=== PATIENT | female | born 1945 | race Caucasian/White ===

== ENCOUNTER → 2017-04-21 | Outpatient (CLI) | payer MEDICARE, BC, OTHER ==
--- NOTE | 2017-04-21 11:48 | REPMRS ---
Patient History The patient states she had a clinical breast exam in March 2017. Patient is postmenopausal. Digital Mammo Screening Bilat: April 21, 2017 - Exam #: [id number] Bilateral CC and MLO view(s) were taken. Technologist: Marguerite Barahona, Technologist Prior study comparison: April 21, 2016, bilateral digital mammo screening bilat performed at [facility]. April 16, 2015, bilateral digital mammo screening bilat performed at [facility]. FINDINGS: There are scattered fibroglandular densities. There has been no change in the appearance of the mammogram from the prior studies. There is a mild amount of residual fibroglandular tissue which is fairly symmetric. There is no interval development of dominant mass, architectural distortion, or clustered microcalcification suggestive of malignancy. ASSESSMENT: BI-RADS/ACR category 1 mammogram. Negative. Recommendation Routine screening mammogram in 1 year (for women over age 40). This mammogram was interpreted with the aid of an FDA-approved computer-aided dectection system. Electronically Signed By: Rob Peoples MD 04/21/17 [id number]
== END ==
LOC: M RAD 11:13
PROVIDERS: ATTEND Nurse Practitioner Women's Health
DX: Z12.31 Encounter for screening mammogram for malignant neoplasm of breast (principal)

== ENCOUNTER → 2017-04-29 | Outpatient (CLI) | payer MEDICARE, BC ==
--- NOTE | 2017-04-30 09:51 | DEXA ---
AP SPINE L1 - L4 1.280 0.7 2.4 LT FEMUR TOTAL 1.064 0.4 2.0 RT FEMUR TOTAL 1.099 0.7 2.2 TOTAL BODY TOTAL OTHER % COMMENTS: Normal bone densitometry of the spine and hips. Lumbar scoliosis, mild. The density of the spine has increased 6.2% since the initial exam on 2004. The spine density has increased 6.7% since the most recent exam on 04/30/2010. The density of the left hip has decreased 1.8% since the initial exam on 2004. The density of the left hip has decreased 6.9% since the most recent exam on 11/2009. The density of the right hip has increased 0.7% since the initial exam on 2004. The density of the right hip has decreased 2.0% since the most recent exam on . FOLLOW-UP: Recommendation for the next bone density exam: 5 years. CHINEDU
== END ==
LOC: M WHC 09:21
PROVIDERS: ATTEND Nurse Practitioner Women's Health
DX: N95.9 Unspecified menopausal and perimenopausal disorder (principal)

== ENCOUNTER → 2018-04-29 | Outpatient (CLI) | payer MEDICARE, BC, OTHER | LOC: M RAD 10:58 | DX: Z12.31 Encounter for screening mammogram for malignant neoplasm of breast (principal) | CPT/HCPCS: 77067 ==

== ENCOUNTER → 2019-03-29 | Outpatient (CLI) | payer MEDICARE, BC, OTHER ==
--- NOTE | 2019-03-29 11:30 | REPMRS ---
Patient History 3D TOMOSYNTHESIS WAS PERFORMED. The [facility] lifetime risk for breast cancer is 4.6%. Digital Mammo Screening Bilat: March 29, 2019 - Exam #: [id number] Bilateral CC and MLO view(s) were taken. Technologist: Steph Mckeon, Technologist Prior study comparison: April 29, 2018, bilateral digital mammo screening bilat performed at [facility]. April 21, 2017, bilateral digital mammo screening bilat performed at [facility]. FINDINGS: There are scattered fibroglandular densities. There has been no change in the appearance of the mammogram from the prior studies. There is a mild amount of residual fibroglandular tissue which is fairly symmetric. There is no interval development of dominant mass, architectural distortion, or clustered microcalcification suggestive of malignancy. Assessment: BI-RADS/ACR category 1 mammogram. Negative Mammogram. Recommendation Routine screening mammogram in 1 year (for women over age 40). This mammogram was interpreted with the aid of an FDA-approved computer-aided dectection system. Electronically Signed By: Rob Peoples MD 03/29/19 [id number]
== END ==
LOC: M RAD 10:38
PROVIDERS: ATTEND Nurse Practitioner Women's Health
DX: Z12.31 Encounter for screening mammogram for malignant neoplasm of breast (principal)

== ENCOUNTER → 2020-04-05 | Outpatient (CLI) | payer MEDICARE, BC ==
--- NOTE | 2020-04-05 13:48 | REPMRS ---
Patient History The patient states she had a clinical breast exam in 2019. Patient is postmenopausal. No known family history of cancer. 3D TOMOSYNTHESIS WAS PERFORMED. [facility] for [facility] cancer is 4.3%. VOLMOODY DENSITY A. Digital Woman Screen Mammo: April 05, 2020 - Exam #: [id number] Bilateral CC and MLO view(s) were taken. Technologist: Ellie Castro, Technologist Prior study comparison: March 29, 2019, bilateral digital mammo screening bilat, performed at [facility]. April 29, 2018, bilateral digital mammo screening bilat, performed at [facility]. FINDINGS: There are scattered fibroglandular densities. There has been no change in the appearance of the mammogram from the prior studies. There is a mild amount of residual fibroglandular tissue which is fairly symmetric. There is no interval development of dominant mass, architectural distortion, or clustered microcalcification suggestive of malignancy. Assessment: BI-RADS/ACR category 1 mammogram. Negative Mammogram. Recommendation Routine screening mammogram in 1 year (for women over age 40). This mammogram was interpreted with the aid of an FDA-approved computer-aided dectection system. Electronically Signed By: Rob Peoples MD 04/05/20 [id number]
== END ==
LOC: M WHC 12:46
PROVIDERS: ATTEND Advanced Practice Midwife
DX: Z12.31 Encounter for screening mammogram for malignant neoplasm of breast (principal); Z78.0 Asymptomatic menopausal state

== ENCOUNTER → 2021-05-14 | Outpatient (CLI) | payer MEDICARE, BC ==
--- NOTE | 2021-05-14 10:57 | REPMRS ---
Patient History The patient states she had a clinical breast exam on 04-11-2021. Patient is postmenopausal. Family history of pancreatic cancer at age 50 in brother. No Hormone Replacement Therapy Patient states no breast complaints today. Patient has signed MRS History Sheet. Digital Woman Screen Mammo: May 14, 2021 - Exam #: [id number] Bilateral CC and MLO view(s) were taken. Technologist: Bronwyn Earl, Clinical Data Management Manager Prior study comparison: April 05, 2020, bilateral digital woman screen mammo performed at [facility]. March 29, 2019, bilateral digital mammo screening bilat, performed at [facility]. FINDINGS: The breast tissue is almost entirely fat. Screening. Digital screening (2D) mammography was performed bilaterally in the CC and MLO projections. Additionally, breast tomosynthesis (3D mammography) was performed bilaterally in the CC and MLO projections. Todays exam was compared to the prior exam/exams. By history, the patient has no complaints of a palpable breast abnormality or other significant breast complaints. The breasts are unchanged in size and shape. There are no amanda-soft tissue densities or spiculated masses. There is no internal architectural distortion. Once again, stable benign appearing calcifications are seen.There are no suspicious amanda-calcific clusters. Skin thickening or nipple retraction is not present. IMPRESSION: BI-RADS Category 2- Benign Findings. There is no evidence of malignant alteration of the breasts. Followup examination recommended in one year. The Volpara volumetric breast density category is A, the breasts are almost entirely fatty. This mammogram was read with the assistance of [facility] [employer],an FDA approved computer aided detection system for mammography. The lifetime Tyrer-Cuzick score is 4 % Negative x-ray reports should not delay surgical consultation if a dominant or clinically suspicious mass is present. Not all breast cancers can be identified by mammography. Therefore, we recommend that you continue to perform regular breast self-examination and physical examination and then promptly contact your physician of any concerns or changes. Adenosis and dense breasts may obscure an underlying neoplasm. Assessment: BI-RADS/ACR category 2 mammogram. Benign Findings. Recommendation Routine screening mammogram of both breasts in 1 year. Electronically Signed By: Magan Lawrence DO 05/14/21 [id number]
== END ==
LOC: M WHC 08:22
PROVIDERS: ATTEND Advanced Practice Midwife
DX: Z12.31 Encounter for screening mammogram for malignant neoplasm of breast (principal)

== ENCOUNTER → 2022-05-15 | Outpatient (CLI) | payer MEDICARE, OTHER | LOC: M WHC 12:20 | PROVIDERS: ATTEND Internal Medicine | DX: Z12.31 Encounter for screening mammogram for malignant neoplasm of breast (principal) ==

== ENCOUNTER → 2022-10-27 | Outpatient (CLI) | payer MEDICARE, BC, OTHER | LOC: M WHC 09:31 | PROVIDERS: ATTEND Internal Medicine | DX: M81.0 Age-related osteoporosis without current pathological fracture (principal) ==

== ENCOUNTER → 2022-11-12 | Outpatient (REF) | payer MEDICARE, BC, OTHER ==
[2022-11-12 18:32] LABS: PERCENT SATURATION 12.6 % (13.2-45.0)
[2022-11-12 18:40] LABS: FERRITIN 14.1 NG/ML (7.3-270.7)
[2022-11-12 18:42] LABS: FOLATE 13.2 NG/ML (>5.4)
== END ==
LOC: M LAB REF 16:30
PROVIDERS: ATTEND Internal Medicine
DX: D64.9 Anemia, unspecified (principal)

== ENCOUNTER → 2023-04-07 | Outpatient (REF) | payer MEDICARE, BC, OTHER ==
[2023-04-07 19:32] LABS: PERCENT SATURATION 40.6 % (13.2-45.0)
[2023-04-07 19:36] LABS: FERRITIN 131.6 NG/ML (7.3-270.7)
[2023-04-07 19:50] LABS: PTH INTACT 58.5 PG/ML (18.5-88.0)
== END ==
LOC: M LAB REF 16:27
PROVIDERS: ATTEND Internal Medicine
DX: D64.9 Anemia, unspecified (principal); N18.30 Chronic kidney disease, stage 3 unspecified

== ENCOUNTER → 2023-05-18 | Outpatient (CLI) | payer MEDICARE, BC, OTHER | LOC: M WHC 10:19 | PROVIDERS: ATTEND Internal Medicine | DX: Z12.31 Encounter for screening mammogram for malignant neoplasm of breast (principal) ==

== ENCOUNTER → 2024-06-10 | Outpatient (CLI) | payer MEDICARE, BC | LOC: M WHC 15:34 | PROVIDERS: ATTEND Internal Medicine | DX: Z12.31 Encounter for screening mammogram for malignant neoplasm of breast (principal) ==

== ENCOUNTER → 2025-06-15 | Outpatient (CLI) | payer MEDICARE, BC | LOC: M WHC 13:23 | PROVIDERS: ATTEND Internal Medicine | DX: Z12.31 Encounter for screening mammogram for malignant neoplasm of breast (principal); R92.313 Mammographic fatty tissue density, bilateral breasts; N64.89 Other specified disorders of breast ==